=== PATIENT | female | born 1975 | race Caucasian/White ===

== ENCOUNTER 2021-03-10 09:41 | Inpatient (IN) | payer OTHER ==
[~2021-03-10] VITALS: Ht 160 cm; Wt 74.8 kg
[2021-03-10] MEDS ORDERED: MULTI VITAMIN1 EACH PO (09:52)
[2021-03-12] MEDS ORDERED: DICLOFENAC SODI75 MG PO (08:28)
[2021-03-12] MEDS ORDERED: ULTRACET PO (08:28)
[2021-03-12] MEDS ORDERED: PROTONIX40 MG PO (08:28)
[2021-03-12] MEDS ORDERED: COLACE100 MG PO (08:29)
[2021-03-12] MEDS ORDERED: LOVENOX40 MG/0.4 SUBCUTANEO (08:29)
== END 2021-03-12 09:45 | disposition home or self-care (01) | DRG 743 ==
LOC: ER 09:41 → SURG 11:24
PROVIDERS: ADMIT Surgery; ATTEND Surgery
PROC: 0UT14ZZ Resection of Left Ovary, Percutaneous Endoscopic Approach (ICD-10-PCS; principal; 2021-03-10)
PROC: 0UT64ZZ Resection of Left Fallopian Tube, Percutaneous Endoscopic Approach (ICD-10-PCS; 2021-03-10)
PROC: 07BC4ZZ Excision of Pelvis Lymphatic, Percutaneous Endoscopic Approach (ICD-10-PCS; 2021-03-10)
PROC: 0JBC0ZX Excision of Pelvic Region Subcutaneous Tissue and Fascia, Open Approach, Diagnostic (ICD-10-PCS; 2021-03-10)
DX: N80.1 Endometriosis of ovary (principal); N83.12 Corpus luteum cyst of left ovary; N80.3 Endometriosis of pelvic peritoneum; D36.0 Benign neoplasm of lymph nodes; N83.8 Other noninflammatory disorders of ovary, fallopian tube and broad ligament; D72.828 Other elevated white blood cell count; Z20.822 Contact with and (suspected) exposure to COVID-19
CPT/HCPCS: 72198